=== PATIENT | male | born 1970 | race Caucasian/White ===

== ENCOUNTER → 2020-05-11 15:45 | Outpatient (CLI) | payer OTHER, SELFPAY ==
--- NOTE | ~2020-05-11 | XR_ITS ---
EXAMINATION: XR abdomen/kub 1V DATE: 05/11/2020 16:25 INDICATION: Kidney stone. TECHNIQUE: A supine view of the abdomen on 2 radiographs was obtained. COMPARISON: CT abdomen and pelvis 05/21/2019, abdomen radiographs 05/20/2019 FINDINGS: There are no dilated loops of bowel. There are phleboliths in the pelvis. There are 1 mm an d 2 mm stones in left kidney. There are 2 mm and 3 mm densities between right L3 and L4 transverse pr ocesses. IMPRESSION: 1. Small left kidney stones. 2. 2 mm and 3 mm densities between right L3 and L4 transverse processes, which may be stones in proxi mal right ureter. Reviewed, dictated and finalized at location A. IMPRESSION: 1. Small left kidney stones. 2. 2 mm and 3 mm densities between right L3 and L4 transverse processes, which may be stones in proximal right ureter.
== END ==
PROVIDERS: PCP Internal Medicine; Visit Provider Urology
DX: N20.0 Calculus of kidney (principal)
CPT/HCPCS: 74018

== ENCOUNTER → 2020-05-18 12:51 | Outpatient (CLI) | payer OTHER, SELFPAY ==
--- NOTE | ~2020-05-18 | CT_ITS ---
EXAMINATION: CT abdomen pelvis wo con EXAM DATE: 05/18/2020 13:19 INDICATION: Kidney stone. History of lithotripsy. TECHNIQUE: Spiral CT of the abdomen and pelvis was performed without contrast. Axial, coronal and sag ittal images were reviewed. The dose-length product (DLP) for this examination was 560.02 mGy-cm. T he exposure was tailored according to patient size (auto mA exposure control), and iterative reconstr uction (ASIR) was used as additional dose reduction technique. Comparison is made to prior examinatio n from 05/21/2019. FINDINGS: Previously seen ureteral stones have passed. There is punctate right nephrolithiasis. There are approximately 5 punctate left calyceal stones. Vague left renal hypodensities which are statisti compa most likely cysts. The prostate is unremarkable. The bladder is unremarkable. The liver, spl een, adrenal glands and pancreas are unremarkable. Gallbladder is unremarkable. No biliary obstruct ion. There is no retroperitoneal or pelvic lymphadenopathy. The appendix is normal. The stomach and small bowel are unremarkable. There is expected amount of c olonic stool. No free intraperitoneal gas. The heart is normal in size. There are no pericardial or pleural effusions. The lung bases are unremarkable. The bones are unremarkable. IMPRESSION: Punctate bilateral nephrolithiasis. No obstructive nephropathy. Reviewed, dictated and finalized at location B.
== END ==
PROVIDERS: PCP Internal Medicine; Visit Provider Urology
DX: N20.0 Calculus of kidney (principal)
CPT/HCPCS: 74176

== ENCOUNTER → 2020-11-08 15:27 | Outpatient (CLI) | payer OTHER, SELFPAY ==
--- NOTE | ~2020-11-08 | XR_ITS ---
XR abdomen/kub 1V DATE: 11/08/2020 15:50 INDICATION: 3 mm left ureterovesical junction calculus TECHNIQUE: AP projection, 2 views COMPARISON: 11/08/[address] abdomen pelvis FINDINGS: There is a faint approximately 3 number calcification overlying the left ureter vesicle cole ction, corresponding to the calculus documented at this location by the 11/08/2020 CT abdomen pelvis e xamination. A couple of subtle very small left renal calcified calculi are suggested on this KUB, present on the CT examination. Social history intact. No visceromegaly is detected. No evidence of bowel obstruction. IMPRESSION: Faintly calcified approximately 3 mm left ureterovesical calculus Bilateral mild nonobstructive nephrolithiasis, better demonstrated by current CT examination Reviewed, dictated and finalized at Location A. Reviewed, dictated and finalized at location A. IMPRESSION: Faintly calcified approximately 3 mm left ureterovesical calculus Bilateral mild nonobstructive nephrolithiasis, better demonstrated by current C T examination
--- NOTE | ~2020-11-08 | CT_ITS ---
EXAMINATION: CT abdomen pelvis wo con DATE: 11/08/2020 15:50 INDICATION: Kidney calculus TECHNIQUE: Computed tomography (CT) of the abdomen and pelvis was performed without intravenous contr ast. Automated exposure control and iterative reconstruction technique were employed. Exam dose: 632 .49 mGy-cm total exam DLP. COMPARISON: 05/18/[address] abdomen pelvis 3. KUB FINDINGS: The lung bases are clear of infiltrate or consolidation. Normal heart size. No pericardial or pleural effusion. The liver, gallbladder, bile ducts, pancreas, pancreatic duct, spleen, and adrenal glands are unremar kable. Stable approximately 9 mm exophytic posterior lower pole right renal probable cyst. There are two approximately 2 mm smaller right renal nonobstructing calculi. No right ureteral calcul us. 3 mm nonobstructing upper pole left renal calculus. There are 2 or 3 pinpoint nonobstructing lower po le left renal calculi. There is a 3 mm left ureterovesical junction calculus with mild left hydroureteronephrosis. The urinary bladder, prostate gland and seminal vesicles are unremarkable. Normal caliber of the abdominal aorta. No intraperitoneal or retroperitoneal or pelvic mass lesion or adenopathy or ascites. Normal appendix. No bowel obstruction, bowel wall thickening, pneumatosis or intraperitoneal free air . Included skeletal structures are unremarkable. IMPRESSION: Radiographically detectable 3 mm left ureterovesical junction calculus with mild left hy droureteronephrosis Mild bilateral nephrolithiasis Reviewed, dictated and finalized at Location A. Reviewed, dictated and finalized at location A. IMPRESSION: Radiographically detectable 3 mm left ureterovesical junction calc ulus with mild left hydroureteronephrosis Mild bilateral nephrolithiasis
== END ==
PROVIDERS: PCP Internal Medicine; Visit Provider Urology
DX: N20.0 Calculus of kidney (principal)
CPT/HCPCS: 74018; 74176

== ENCOUNTER → 2023-05-17 11:11 | Outpatient (CLI) | payer BC, SELFPAY ==
--- NOTE | ~2023-05-17 | CT_ITS ---
EXAMINATION: CT soft tissue neck chest w DATE: 05/17/2023 11:41 INDICATION: Tonsil cancer. TECHNIQUE: Computed tomography (CT) of the neck and chest was performed with 75 mL Omnipaque-350 intr avenous contrast. Automated exposure control and iterative reconstruction technique were employed. Th e dose-length product was 847.96 mGy-cm. COMPARISON: CT abdomen and pelvis 11/08/2020 FINDINGS: CT NECK: There are surgical clips in the neck bilaterally from lymph node dissections. There are no p athologically enlarged lymph nodes. There is thickening of the mucosal space of the pharynx, consiste nt with changes of radiation therapy. There is mucosal thickening in the paranasal sinuses. There are mucous retention cysts in the maxillary sinuses. The mastoid air cells are normal. There is moderate cervical spondylosis. CT CHEST: The lungs demonstrate mild atelectasis. No pleural effusion. The heart size is normal. No p ericardial effusion. There are no pathologically enlarged lymph nodes. There is mild thoracic spondyl osis. IMPRESSION: 1. No evidence of metastatic disease. Reviewed, dictated and finalized at location A.
== END ==
DX: C09.9 Malignant neoplasm of tonsil, unspecified (principal)
CPT/HCPCS: 70491; 71260; Q9967

== ENCOUNTER → 2023-09-13 08:09 | Outpatient (CLI) | payer BC, SELFPAY ==
--- NOTE | ~2023-09-13 | CT_ITS ---
EXAMINATION: CT soft tissue neck chest w DATE: 09/13/2023 08:39 INDICATION: Tonsillar cancer. TECHNIQUE: Computed tomography (CT) of the neck and chest was performed with 75 mL Omnipaque-350 intr avenous contrast. Automated exposure control and iterative reconstruction technique were employed. Th e dose-length product was 1051.81 mGy-cm. COMPARISON: CT 05/17/2023 FINDINGS: CT NECK: There is mucosal thickening in the paranasal sinuses. There is mucosal thickening in the pha rynx and larynx, and there is fat stranding in the neck, likely changes of radiation therapy. There a re no pathologically enlarged lymph nodes. There are surgical clips in the neck bilaterally. There is 0% stenosis of the proximal internal carotid arteries relative to normal distal artery lumen diamete rs. The orbits are normal. The mastoid air cells are normal. There is moderate cervical spondylosis. CT CHEST: There is mild atelectasis bilaterally. No pleural effusion. There are nodules in the thyroi d measuring up to 8 mm, likely not clinically significant. The heart size is normal. No pericardial e ffusion. There are gallstones in the gallbladder, which is normal in size. There are cysts in the kid neys measuring up to 12 mm on the left. There is a 5 mm stone in left kidney. There is mild thoracic spondylosis. IMPRESSION: 1. No evidence of metastatic disease. Reviewed, dictated and finalized at location E. ING CREELER
== END ==
DX: C09.9 Malignant neoplasm of tonsil, unspecified (principal)
CPT/HCPCS: 70491; 71260; Q9967

== ENCOUNTER 2024-03-06 08:10 | Outpatient (CLI) | payer BC, SELFPAY ==
--- NOTE | ~2024-03-06 | CT_ITS ---
EXAMINATION: CT soft tissue neck chest w DATE: 03/06/2024 08:43 INDICATION: Tonsil cancer, restaging. TECHNIQUE: Computed tomography (CT) of the neck and chest was performed with 75 mL Omnipaque-350 intr avenous contrast. Automated exposure control and iterative reconstruction technique were employed. Th e dose-length product was 846.85 mGy-cm. COMPARISON: Neck and chest CT 09/13/2023 FINDINGS: CT NECK: There are surgical clips in the neck bilaterally. There is fat stranding in the neck, consis tent with changes of surgery and radiation therapy. There are no pathologically enlarged lymph nodes. There is mild mucosal thickening in the paranasal sinuses. There are mucous retention cysts in the m axillary sinuses. There is severe spondylosis at C5-C6 and mild spondylosis at other levels. CT CHEST: The lungs demonstrate mild atelectasis. No pleural effusion. The heart size is normal. No pericardial effusion. There is diffuse hepatic steatosis. There are gallstones in the gallbladder which is lázaro l in size. There is mild thoracic spondylosis. IMPRESSION: 1. No evidence of metastatic disease. Reviewed, dictated and finalized at location E.
== END 2024-03-06 08:11 ==
LOC: MICIMG 08:11
PROVIDERS: PCP Physician Assistant Medical
DX: C09.9 Malignant neoplasm of tonsil, unspecified (principal)
CPT/HCPCS: 70491; 71260; Q9967

== ENCOUNTER 2024-06-28 11:00 | Emergency (ER) | payer SELFPAY ==
--- NOTE | 2024-06-28 12:35 | PC.NURSE ---
pt left d/t wait time
== END 2024-06-28 13:25 | disposition left against medical advice (07) ==
LOC: ANHED 12:37
PROVIDERS: PCP Physician Assistant Medical
DX: R10.9 Unspecified abdominal pain (principal)
CPT/HCPCS: 99199

== ENCOUNTER 2024-06-30 09:46 | Outpatient (CLI) | payer OTHER, SELFPAY ==
--- NOTE | ~2024-06-30 | CT_ITS ---
CT abdomen pelvis wo con Ordering provider: Fabiola Argueta PA-C History: 53 years Male with . N20.0 - Calculus of kidney . Comparison: November 08, 2020 Technique: CT abdomen and pelvis without IV and without oral contrast. Automated exposure control and iterative reconstruction technique were employed. The dose-length product was 1096.68 mGy-cm. Findings: VISUALIZED LOWER CHEST: Normal. UPPER ABDOMINAL ORGANS: Liver: Fat infiltration. Gallbladder: Cholelithiasis. Spleen: Normal. Stomach/duodenum: Normal. Pancreas: Normal. Adrenals: Normal. Kidneys: Tiny stone in the right kidney upper pole measuring 4 mm. Tiny stones in the right kidney lo wer pole. No definite ureteric stones or hydronephrotic changes. Tiny stone in the left kidney upper pole. Stone in the left kidney midpole measuring 4 mm. Very tiny stones in the left kidney lower pole. Left hydronephrotic and hydroureter changes are noted with a st ones in the left lower ureter with the largest measuring 5.7 mm. Soft tissue density right kidney lower pole most likely a small cyst. PELVIC ORGANS: The bladder is underfilled with slightly thickened wall. BOWEL AND MESENTERY: Colon: No evidence of diverticulitis. Normal appendix. Small Bowel: Normal. No obstruction. Peritoneum/mesentery: No free air or free fluid. No mesenteric lymphadenopathy. RETROPERITONEUM: Normal aorta. Mild atherosclerotic changes of the iliac arteries. No retroperitonea l lymphadenopathy. MUSCULOSKELETAL: Superficial soft tissues: The superficial soft tissues are normal. Bones: Age appropriate degenerative changes of the spine. IMPRESSION: 1. Stones in the left lower ureter with hydroureter and hydronephrotic changes. 2. Bilateral kidney stones. 3. Fat infiltration of the liver. 4. Cholelithiasis. Reviewed, dictated and finalized at location A. OMER RELATIONS ASSISTANT IMPRESSION: 1. Stones in the left lower ureter with hydroureter and hydronephrotic changes . 2. Bilateral kidney stones. 3. Fat infiltration of the liver. 4. Cholelithiasis.
== END 2024-06-30 09:47 | disposition home or self-care (01) ==
LOC: MICIMG 09:47
PROVIDERS: PCP Urology; Visit Provider Physician Assistant Medical
DX: N13.2 Hydronephrosis with renal and ureteral calculous obstruction (principal); K76.0 Fatty (change of) liver, not elsewhere classified; K80.20 Calculus of gallbladder without cholecystitis without obstruction
CPT/HCPCS: 74176

== ENCOUNTER 2024-07-03 14:22 | Outpatient (CLI) | payer OTHER, SELFPAY ==
--- NOTE | ~2024-07-03 | XR_ITS ---
EXAM: XR abdomen/kub 1V DATE: 07/03/2024 14:40 HISTORY: L ureteral stone . COMPARISON: CT abdomen pelvis 06/30/2024. FINDINGS: Clear lung bases. Normal bowel gas pattern. No organomegaly. 6 and 4 mm left pelvis calcif ications projecting over the expected pathway of the left ureter, corresponding with ureteral stones in the prior CT. Punctate bilateral renal calcifications. Regional bones and soft tissues normal for age. IMPRESSION: Unchanged distal left ureteral stones. Bilateral nephrolithiasis. Reviewed, dictated and finalized at location K. TABLE CANNER
== END 2024-07-03 14:23 | disposition home or self-care (01) ==
PROVIDERS: PCP Urology; Visit Provider Urology
DX: N20.2 Calculus of kidney with calculus of ureter (principal)
CPT/HCPCS: 74018

== ENCOUNTER 2024-07-09 01:39 | Day surgery (SDC) | payer OTHER, SELFPAY ==
[2024-07-06 10:26] VITALS: BMI 30.2
--- NOTE | 2024-07-06 10:34 | PC.NURSE ---
Report to the Outpatient Waiting Room, entrance under the green pavilion located off [facility], at time _1030_ on date _[id number]_. Planned Procedure Time: _1230_.? Time changes happen often and if your time is changed the preop area will call you the afternoon before. - You and your visitor will be asked to self-screen and do not enter if you have any COVID symptoms. Please call surgeon if you need to reschedule. - A mask is optional within the hospital at this time. Patients may have clear liquids (water, carbonated beverages, clear teas, apple juice) until 3 hours prior to surgery with a maximum of 20 ounces. - No food from midnight until time of surgery and no smoking Take only the following medications with a SIP of water on the morning of surgery: __Clonazepam, Nasocort and if needed Hydrocodone. DO NOT STOP ANY OF YOUR OTHER PRESCRIPTION MEDICATIONS PRIOR TO SURGERY EXCEPT THE FOLLOWING Medications to discontinue per physician __None____ Please no make-up, nail bengali, hairspray, perfume, deodorant, or body powder the day of surgery.? No jewelry (including any body piercings) or valuables the day of surgery, leave them at home.? Please take a shower or bath the night before, or the morning of, surgery with an antibacterial soap.? Wear comfortable, loose fitting clothing.? - Jewelry must be removed prior to entering the operating room.? Rings and piercings that are not removed may be cut off. - The hospital will not accept responsibility for valuables.? - Please leave all valuables, including medications, at home the day of surgery. If you are going home after surgery, a licensed crew car driver must drive you home.? - NO public transportation without another adult if you receive anesthesia. - We recommend that an adult stay with you for 24 hours following discharge. - We also recommend that you do not drive, make important decision, drink alcoholic beverages, or take any drugs that were not prescribed by your health care provider for at least 24 hours after your discharge time. Follow any additional instructions given to you from your surgeon. Telephone instructions given to _Dan__and asked if any additional questions and then verbalized understanding. Patient advised to call surgeon office or pre surgery nurse liaison [phone] if any additional questions.
[2024-07-09] VITALS (8 sets, daily range): BP systolic 110–144; BP diastolic 81–98; PULSE 79–102; RESP 12–18; TEMP 36.4–36.6; O2SAT 96–100; BMI 31.1
--- NOTE | ~2024-07-09 | XR_ITS ---
EXAMINATION: XR stent kub - surgery DATE: 07/09/2024 12:52 INDICATION: Left ureteral stone. TECHNIQUE: 2 intraoperative fluoroscopic views of the abdomen and pelvis were obtained. I was not pre sent. Fluoroscopy time was 16 seconds. COMPARISON: CT abdomen and pelvis 06/30/2024 FINDINGS: There are phleboliths in the pelvis. There is no visible urolithiasis. IMPRESSION: 1. No visible urolithiasis. Reviewed, dictated and finalized at location A. OL BUS AIDE IMPRESSION: 1. No visible urolithiasis.
--- NOTE | ~2024-07-09 | XR_ITS ---
EXAMINATION: XR abdomen/kub 1V DATE: 07/09/2024 11:00 INDICATION: Kidney stones. TECHNIQUE: A supine view of the abdomen on 2 radiographs was obtained. COMPARISON: Abdomen radiographs 07/03/2024, CT abdomen and pelvis 06/30/2024 FINDINGS: There are no dilated loops of bowel. There are phleboliths in the pelvis. There is a 3 mm s tone in right kidney. There are 4 visible stones in left kidney measuring up to 3 mm. There are 8 x 5 mm and 8 x 4 mm stones in distal left ureter. IMPRESSION: 1. Distal left ureteral stones with interval distal migration. 2. Bilateral kidney stones. Reviewed, dictated and finalized at location A. ACE OPERATOR AND TENDER
--- NOTE | 2024-07-09 05:55 | WPDHPUPDATE1 ---
History and Physical Update Update Date/Time: 07/09/24 05:55 History and Physical has been reviewed, including an updated exam of the patient. There are NO changes in the patient's condition. Risks, benefits, and alternatives have been discussed and questions answered. Patient agrees to proceed with procedure.
--- NOTE | 2024-07-09 11:01 | ECG_ITS ---
Test Date: 2024-07-09 11:18:55 Measurements Intervals [place] Rate: 90 P: 16 MS: 132 QRS: 7 QRSD: 100 T: 0 QT: 354 QTc: 434 Interpretive Statements SINUS RHYTHM LOW QRS VOLTAGE IN PRECORDIAL LEADS BORDERLINE ST-T WAVE ABNORMALITY- INFERIOR LEADS BORDERLINE ECG No previous ECG available for comparison Electronically Signed On 07-09-2024 11:56:15 VEHICLE TECHNICIAN by Nader Lopez D.O.
--- NOTE | 2024-07-09 11:56 | WPDANESEPPF ---
Anes - Initial Pre Proc Eval Procedure: Operation Date: 07/09/24 12:30 Proposed Procedures p Cystoscopy, Left Ureteroscopy with Holmium Laser Lithotripsy, Left Stone Extraction, Possible Left Retrograde Pyelogram and Left Stent Placement - Paulie Doyle MD Date/Time: 07/09/24 11:56 Surgeon: Paulie Doyle MD Pre Op Diagnosis: Left Ureteral Stone Patient Data Age: 53 Gender: M Height: 1.78 m Weight: 95.5 kg Allergies Allergy/AdvReac Type Severity Reaction Status Date / Time meperidine AdvReac Unknown MAKES ME Verified 07/06/24 10:24 FEEL WEIRD amoxicillin [From Augmentin] AdvReac Diarrhea Verified 07/06/24 10:24 clavulanic acid AdvReac Diarrhea Verified 07/06/24 10:24 [From Augmentin] fluoxetine [From Prozac] AdvReac Other Verified 07/06/24 10:24 sertraline [From Zoloft] AdvReac Other Verified 07/06/24 10:24 Home Medications Medication Instructions Recorded Confirmed Type triamcinolone acetonide 55 mcg 1 spray intranasal DAILY 11/29/22 07/06/24 History nasal spray aerosol (Nasacort) clonazepam 0.5 mg tablet 0.5 mg PO TID PRN anxiety #90 tabs 06/01/24 07/06/24 Rx hydrocodone 5 mg-acetaminophen 325 1 - 2 tablet PO Q6H PRN pain #30 06/23/24 07/06/24 Rx mg tablet tabs rosuvastatin 5 mg tablet 5 mg PO DAILY #90 tabs 06/29/24 07/06/24 Rx tamsulosin 0.4 mg capsule 0.4 mg PO DAILY #7 caps 07/01/24 07/06/24 Rx famotidine 20 mg tablet (Pepcid AC) 20 mg PO HS 07/06/24 07/06/24 History Patient hx anesthesia problems: none Family hx anesthesia problems: none Results Review: All pre-operative results and documents have been reviewed as part of the pre-operative evaluation. [facility] Past Medical History Medical History (Updated 07/09/24 @ 11:58 by Seng Lema MD) Anxiety Chronic GERD Hiatal hernia Hyperlipidemia Kidney stone Right tonsillar squamous cell carcinoma HPV, radiation, partial tongue resection - right, bilateral neck dissection Vitamin D deficiency Surgical History Surgical History H/O lithotripsy History of tonsillectomy due to cancer, lymph node biopsy 2021 Family History Family History Mother Hypertension Grandparent Diabetes mellitus Hypertension Heart disease Cerebrovascular accident Throat cancer Social History Social History Smoking status: Never smoker Alcohol intake: current Drinks per week: 2 Substance use: never Substance use type: does not use Living arrangements: with family Occupation/Education: occupation Gender identity (if verbalized by the patient): Male Spiritual care concerns: No Anes - Eval Final PreProcedure Day of Procedure 07/09/24 11:56 Patient weight: obese Heart: regular rate and rhythm Lungs: clear to auscultation Airway: Mallampati scale class III, special considerations poor opening and other (tongue resection of base right, radiation right) Neurological: alert and oriented Last oral intake: >/= 8 hours ASA classification: III Emergent: no Anesthetic plan: proceed Anesthesia type and monitoring: general LMA and standard monitoring Results Review: All pre-operative results and documents have been reviewed as part of the pre-operative evaluation. Informed Consent: The patient's anesthetic plan and its attendant risks and benefits were discussed with the patient/family/POA. Questions were solicited and answers provided to the satisfaction of the patient/family/POA.
[2024-07-09] MEDS: ceFAZolin 2 GM/D5W 50 ML 2 GM/50 ML BAG IVPB (12:11)
[2024-07-09] MEDS: LIDOCAINE HCL 2% GEL UROJET 10 ML PKG MUCOUS MEM (12:29)
[2024-07-09] MEDS: LACTATED RINGERS 1,000 ML 30 ML IV CONT (12:47)
--- NOTE | 2024-07-09 12:52 | P.OP_ITS ---
Procedure Note - Detailed Date of Procedure 07/09/24 Pre-op Diagnosis Left Ureteral Stones Post-op Diagnosis Same Procedure Performed Cystoscopy, left ureteroscopy with laser lithotripsy and stone extraction Surgeon Paulie Doyle MD Anesthesia General Description of Procedure Patient is brought to the operative suite was prepped and draped in routine sterile fashion while in dorsal lithotomy position after the uneventful induction of a general LMA anesthetic. Cystoscopy was undertaken with a 19 F rigid cystoscope. He has no urethral stricture and very mild lateral lobe hyperplasia of the prostate. Bladder mucosa is normal. He has no intravesical foreign body or neoplasm. His right ureteral orifice is normal. I can see a stone extruding from the left ureteral orifice. I grasped it with a grasping forceps and removed it with ease. I then placed a 0.035 in guidewire into the left renal pelvis under fluoroscopy. The distal ureter was dilated with an 8 F 10 F dilator. Ureteroscopy was undertaken with a short tapered semi-rigid ureteral scope is 2nd stone is identified in the intramural portion of his left ureter. Using a 200 micron Tapru laser fiber I fractured into several small pieces all of which were removed with ease with a 1.9 F disposable stone basket. Because of the ease of this manipulation, minimal pain he was having preoperatively, the distal position of the stone and patient's intolerance of stents in the past I opted to place a stent. He was given intravenous k etorolac. Scopes and wires removed and he was taken the recovery room in good condition.
== END 2024-07-09 14:30 | disposition home or self-care (01) ==
PROVIDERS: PCP Physician Assistant Medical; Visit Provider Urology
PROC: (CPT 52352; principal; 2024-07-09 12:30)
DX: N20.1 Calculus of ureter (principal); N40.0 Benign prostatic hyperplasia without lower urinary tract symptoms; E78.5 Hyperlipidemia, unspecified; F41.9 Anxiety disorder, unspecified; K21.9 Gastro-esophageal reflux disease without esophagitis; E55.9 Vitamin D deficiency, unspecified; E66.9 Obesity, unspecified; Z68.31 Body mass index [BMI] 31.0-31.9, adult; Z79.891 Long term (current) use of opiate analgesic; Z98.890 Other specified postprocedural states; Z87.891 Personal history of nicotine dependence; Z85.818 Personal history of malignant neoplasm of other sites of lip, oral cavity, and pharynx; Z92.3 Personal history of irradiation; Z80.1 Family history of malignant neoplasm of trachea, bronchus and lung; Z82.49 Family history of ischemic heart disease and other diseases of the circulatory system
CPT/HCPCS: 52356; 74018; 82365; 88300; 93005; C1769; J0690; J1100; J1885; J2003; J2250; J2405; J2704; J3010; J7120

== ENCOUNTER 2025-03-08 11:15 | Outpatient (CLI) | payer OTHER, SELFPAY ==
--- NOTE | ~2025-03-08 | CT_ITS ---
Clinical Indication: Tonsillar cancer CT Scan of the Neck and Chest with Contrast: Technique: Contiguous sections were acquired throughout the neck and chest after intravenous administ ration of 75 cc of Omnipaque 350. Dose reduction technique was used on this scan by utilizing automat ed exposure control and iterative reconstruction technique. The dose-length product (DLP) was 917.02 mGy-cm. COMPARISON: 09/04/2024 Findings: No soft tissue mass or lymphadenopathy seen in the neck. Parapharyngeal fat preserved bilat erally. Parotid glands and left submandibular gland are unremarkable. Postoperative changes in the ri ght neck with diminutive remnant of the right submandibular gland. Thyroid gland unremarkable. Vascular structures are without significant abnormality. Visualized paran rosina sinuses and mastoid air cells are clear aside from retention cysts or polyps in the bilateral ma xillary sinuses. There is no evidence of any significant mediastinal, hilar or axillary lymphadenopathy. Mediastinal v ascular structures are unremarkable. There is no evidence of pleural or pericardial effusion. The lungs are clear. No pulmonary nodules or infiltrates are noted. Images through the upper abdomen reveal diffuse hepatic steatosis. Impression: No evidence of active malignancy or metastatic disease. Stable postoperative change in the right neck. Reviewed, dictated and finalized at location . Impression: No evidence of active malignancy or metastatic disease. Stable postoperative change in the right neck.
== END 2025-03-08 11:16 | disposition home or self-care (01) ==
PROVIDERS: PCP Physician Assistant Medical
DX: C09.9 Malignant neoplasm of tonsil, unspecified (principal); Z98.890 Other specified postprocedural states
CPT/HCPCS: 70491; 71260; Q9967